=== PATIENT | male | born 1960 | race Caucasian/White ===

== ENCOUNTER 2016-10-16 22:25 | Emergency (ER) | payer OTHER | END 2016-10-17 04:30 | disposition short-term general hospital (02) | LOC: ER 22:25 | DX: R41.82 Altered mental status, unspecified (principal); N39.0 Urinary tract infection, site not specified; F19.10 Other psychoactive substance abuse, uncomplicated; R79.89 Other specified abnormal findings of blood chemistry; I10 Essential (primary) hypertension; F17.210 Nicotine dependence, cigarettes, uncomplicated; Z79.899 Other long term (current) drug therapy | CPT/HCPCS: 36415; 80307; 96361; 96365; 96367; 96375; 96376; G0480; J0456; J0696; J2060 ==

== ENCOUNTER 2016-11-10 22:57 | Emergency (ER) | payer OTHER | END 2016-11-11 03:45 | disposition short-term general hospital (02) | LOC: ER 22:57 | DX: I20.0 Unstable angina (principal); I10 Essential (primary) hypertension; F17.210 Nicotine dependence, cigarettes, uncomplicated | CPT/HCPCS: 36415; 96365; 96375; 96376; J1644 ==